=== PATIENT | male | born 1975 ===

== ENCOUNTER 2019-09-03 19:50 | Emergency (ER) | payer SELFPAY ==
[2019-09-04] MEDS ORDERED: METOCLOPRAMIDE 10 MG TAB PO ONE (00:05)
[2019-09-04] MEDS ORDERED: diphenhydrAMINE 25 MG CAP PO ONE (00:05)
--- NOTE | 2019-09-04 00:40 | Cat Scan Report ---
CT HEAD WITHOUT CONTRAST INDICATION: Pt complains of a headache x 1 day. No trauma or previous issues TECHNIQUE: Axial slices were obtained through the head. Coronal and sagittal reformatted images were obtained. COMPARISON: None available. FINDINGS: There is no intracranial hemorrhage or extra-axial fluid collection. Ventricles, basilar cisterns, an d sulci appear within normal limits for age. There is no mass lesion or midline shift. No acute alexia torial infarct is identified. Bone windows demonstrate no acute osseous abnormality. Paranasal sinuses and mastoid air cells appear clear. TECHNIQUE: All CT scans at this facility use dose modulation, iterative reconstruction, automated ex posure control, weight based dosing, when appropriate, to reduce radiation dose to as low as reasonab ly achievable. IMPRESSION: 1. No acute intracranial abnormality. Signer Name: Chnio Shea MD Signed: 09/04/2019 12:35 AM Workstation Name: [id number]
[2019-09-04 01:06] LABS: Basophils # (Auto) 0.1 K/mm3 (0.0-0.1); Basophils % (Auto) 0.8 % (0.0-1.8); Eosinophils # (Auto) 0.3 K/mm3 (0.0-0.4); Eosinophils % (Auto) 3.6 % (0.0-4.3); Hematocrit 46.1 % (35.5-45.6); Lymphocytes # (Auto) 3.4 K/mm3 (1.2-5.4); Lymphocytes % (Auto) 47.4 % (13.4-35.0); Mean Corpuscular HGB Conc 33 % (32-34); Mean Corpuscular Volume 80 fl (84-94); Monocytes # (Auto) 0.6 K/mm3 (0.0-0.8); Monocytes % (Auto) 8.4 % (0.0-7.3); Platelet Count 337 K/mm3 (140-440); Red Blood Count 5.74 M/mm3 (3.65-5.03); Red Cell Distribution Width 14.1 % (13.2-15.2)
[2019-09-04 01:25] LABS: Alanine Aminotransferase 30 units/L (7-56); Albumin 4.5 g/dL (3.9-5); BUN/Creatinine Ratio 23; Blood Urea Nitrogen 16 mg/dL (9-20); Calcium 9.7 mg/dL (8.4-10.2); Hemolysis Index 12
[2019-09-04 01:29] LABS: Bilirubin,Urine NEG (Negative); Blood,Urine SM (Negative); Color,Urine Straw (Yellow); Protein,Urine <15 mg/dL mg/dL (Negative); Urobilinogen,Urine < 2.0 mg/dL (<2.0)
[2019-09-04] MEDS ORDERED: SODIUM CHLORIDE 0.9% 1000 ML 1,000 ML IV ONE (01:35)
--- NOTE | 2019-09-04 01:37 | Emergency Department Report ---
ED General Adult HPI - General Chief complaint: Headache Stated complaint: BODY PAIN, PAIN IN FEET, AND HEADACHE Time Seen by Provider: 09/03/19 22:56 Source: patient, mergers and acquisitions banker Mode of arrival: Ambulatory Limitations: Language Barrier - History of Present Illness Initial comments: Language line used for [place] interpretation Patient is a 43-year-old male presents emergency room with complaints of generalized body aches and headache that began 2 months ago. He states that he has a frontal headache. He states that occasionally his vision feels blurry. He states that all of these symptoms have been ongoing for 2 months and he has not seen anyone for it. He denies any fever, nausea, vomiting, diarrhea, cough, shortness of breath, numbness, unilateral weakness. He denies any past medical history or allergies to medications. He endorses alcohol use, denies smoking, denies drug use. - Related Data Previous Rx's Medication Instructions Recorded Last Taken Type Butalb/Acetaminophen/Caffeine 1 cap PO Q8HR PRN #12 cap 09/04/19 Unknown Rx [Fioricet 50-300-40 mg CAP] Allergies Allergy/AdvReac Type Severity Reaction Status Date / Time No Known Allergies Allergy Verified 09/03/19 21:06 ED Review of Systems ROS: Stated complaint: BODY PAIN, PAIN IN FEET, AND HEADACHE Other details as noted in HPI Comment: All other systems reviewed and negative ED Past Medical Hx - Past Medical History Previous Medical History?: No - Surgical History Past Surgical History?: No - Social History Smoking Status: Never Smoker Substance Use Type: Alcohol - Medications Home Medications: Home Medications Medication Instructions Recorded Confirmed Last Taken Type Butalb/Acetaminophen/Caffeine 1 cap PO Q8HR PRN #12 cap 09/04/19 Unknown Rx [Fioricet 50-300-40 mg CAP] ED Physical Exam - General Limitations: Language Barrier General appearance: alert, in no apparent distress - Head Head exam: Present: atraumatic, normocephalic - Eye Eye exam: Present: PERRL, EOMI. Absent: periorbital swelling, periorbital tenderness - ENT ENT exam: Present: mucous membranes moist - Neck Neck exam: Present: full ROM. Absent: meningismus - Respiratory Respiratory exam: Present: normal lung sounds bilaterally. Absent: respiratory distress, wheezes, rales, rhonchi, stridor, chest wall tenderness, accessory muscle use, decreased breath sounds, prolonged expiratory - Cardiovascular Cardiovascular Exam: Present: regular rate, normal rhythm, normal heart sounds. Absent: systolic murmur, diastolic murmur, rubs, gallop - Neurological Exam Neurological exam: Present: alert, oriented X3, CN II-XII intact, normal gait, other (normal finger to nose, normal heel to cazares, 5/5 muscle strength in the BUE/BLE, no focal neuro deficit). Absent: motor sensory deficit - Psychiatric Psychiatric exam: Present: normal affect, normal mood - Skin Skin exam: Present: warm, dry, intact ED Course Vital Signs 09/04/19 01:40 Temperature 97.8 F Pulse Rate 54 L Respiratory 14 Rate Blood Pressure 138/88 [Left] O2 Sat by Pulse 99 Oximetry ED Medical Decision Making - Lab Data Result diagrams: 09/04/19 00:28 09/04/19 00:28 Lab Results 09/04/19 09/04/19 09/04/19 Range/Units 00:28 00:28 01:20 WBC 7.2 (4.5-11.0) K/mm3 RBC 5.74 H (3.65-5.03) M/mm3 Hgb 15.0 (11.8-15.2) gm/dl Hct 46.1 H (35.5-45.6) % MCV 80 L (84-94) fl MCH 26 L (28-32) pg MCHC 33 (32-34) % RDW 14.1 (13.2-15.2) % Plt Count 337 (140-440) K/mm3 Lymph % (Auto) 47.4 H (13.4-35.0) % [place] % (Auto) 8.4 H (0.0-7.3) % Eos % (Auto) 3.6 (0.0-4.3) % Baso % (Auto) 0.8 (0.0-1.8) % Lymph # 3.4 (1.2-5.4) K/mm3 [place] # 0.6 (0.0-0.8) K/mm3 Eos # 0.3 (0.0-0.4) K/mm3 Baso # 0.1 (0.0-0.1) K/mm3 Seg Neutrophils % 39.8 L (40.0-70.0) % Seg Neutrophils # 2.9 (1.8-7.7) K/mm3 Sodium 139 (137-145) mmol/L Potassium 4.3 (3.6-5.0) mmol/L Chloride 99.5 (98-107) mmol/L Carbon Dioxide 26 (22-30) mmol/L Anion Gap 18 mmol/L BUN 16 (9-20) mg/dL Creatinine 0.7 L (0.8-1.5) mg/dL Estimated GFR > 60 ml/min BUN/Creatinine Ratio 23 % Glucose 86 (75-100) mg/dL Calcium 9.7 (8.4-10.2) mg/dL Total Bilirubin 0.30 (0.1-1.2) mg/dL AST 34 (5-40) units/L ALT 30 (7-56) units/L Alkaline Phosphatase 73 (35-129) units/L Total Creatine Kinase 579 H (55-170) units/L Total Protein 7.5 (6.3-8.2) g/dL Albumin 4.5 (3.9-5) g/dL Albumin/Globulin Ratio 1.5 % Urine Color Straw (Yellow) Urine Turbidity Clear (Clear) Urine pH 6.0 (5.0-7.0) Ur Specific [place] 1.011 (1.003-1.030) Urine Protein <15 mg/dl (Negative) mg/dL Urine Glucose (UA) Neg (Negative) mg/dL Urine Ketones Neg (Negative) mg/dL Urine Blood Sm (Negative) Urine Nitrite Neg (Negative) Urine Bilirubin Neg (Negative) Urine Urobilinogen < 2.0 (<2.0) mg/dL Ur Leukocyte Esterase Neg (Negative) Urine WBC (Auto) < 1.0 (0.0-6.0) /HPF Urine RBC (Auto) 2.0 (0.0-6.0) /HPF - Radiology Data Radiology results: report reviewed Ordering Physician: BOB TRACY Date of Service: 09/04/19 Procedure(s): CT head/brain wo con Accession Number(s): [id number] cc: BOB TRACY CT HEAD WITHOUT CONTRAST INDICATION: Pt complains of a headache x 1 day. No trauma or previous issues TECHNIQUE: Axial slices were obtained through the head. Coronal and sagittal reformatted images were obtained. COMPARISON: None available. FINDINGS: There is no intracranial hemorrhage or extra-axial fluid collection. Ventricles, basilar cisterns, and sulci appear within normal limits for age. There is no mass lesion or midline shift. No acute territorial infarct is identified. Bone windows demonstrate no acute osseous abnormality. Paranasal sinuses and mastoid air cells appear clear. TECHNIQUE: All CT scans at this facility use dose modulation, iterative reconstruction, automated exposure control, weight based dosing, when appropriate, to reduce radiation dose to as low as reasonably achievable. IMPRESSION: 1. No acute intracranial abnormality. Signer Name: Chino Shea MD Signed: 09/04/2019 12:35 AM Workstation Name: [id number] Transcribed By: SS Dictated By: Chino Shea MD Electronically Authenticated By: Chino Shea MD Signed Date/Time: 09/04/1934 DD/ TD/TT: - Medical Decision Making Language line used for [place] interpretation Patient is a 43-year-old male presents emergency room with complaints of generalized body aches and headache that began 2 months ago. He states that he has a frontal headache. He states that occasionally his vision feels blurry. H e states that all of these symptoms have been ongoing for 2 months and he has not seen anyone for it. He denies any fever, nausea, vomiting, diarrhea, cough, shortness of breath, numbness, unilateral weakness. He denies any past medical history or allergies to medications. He endorses alcohol use, denies smoking, denies drug use. Vitals are stable. No abnormality on physical examination as documented in chart. No focal neuro deficits. CT head with no acute process. Labs with mildly elevated CK of 579, otherwise stable. No protein in the urine. Blood sugar is normal. Patient given 1 L IV fluids, Reglan, Benadryl and headache completely resolved and patient was feeling better. Patient will be referred to a primary care doctor and primary special education teacher. Patient given prescription for Fioricet. Advised patient Please take medication as prescribed as needed. Increase your water intake. Please follow-up with a primary care doctor. Please follow-up with your primary special education teacher. Return to the emergency room for any new or worsening symptoms. - Differential Diagnosis Migraine, tension [place], cluster [place], dehydration, rhabdomyolysis, mass Critical care attestation.: If time is entered above; I have spent that time in minutes in the direct care of this critically ill patient, excluding procedure time. ED Disposition Clinical Impression: Generalized body aches, History of blurry vision, Elevated CK Headache Qualifiers: Headache type: unspecified Headache chronicity pattern: acute headache Intracta bility: not intractable Qualified Code(s): R51 - Headache Disposition: DC-01 TO HOME OR SELFCARE Is pt being admited?: No Does the pt Need Aspirin: No Condition: Stable Instructions: Acute Headache (ED), Musculoskeletal Pain (ED), Blurred Vision (ED) Additional Instructions: Please take medication as prescribed as needed. Increase your water intake. Please follow-up with a primary care doctor. Please follow-up with your primary special education teacher. Return to the emergency room for any new or worsening symptoms. [place] la medicacin segn lo prescrito segn sea necesario. Aumenta tu consumo de agua. Adiel un seguimiento con un mdico de atencin primaria. Aidel un seguimiento con pandya oftalmlogo. Regrese a la ronni de emergencias por cualquier sntoma nuevo o que empeore. Prescriptions: Butalb/Acetaminophen/Caffeine [Fioricet 50-300-40 mg CAP] 1 cap PO Q8HR PRN #12 cap PRN Reason: Headache Referrals: ALTAGRACIA JAY MD [Staff Physician] - 3-5 Days [facility] [Provider Group] - 3-5 Days [facility] [Provider Group] - 3-5 Days Time of Disposition: 03:58 Print Language: [place]
[2019-09-04 01:41] VITALS: BP 138/88
[2019-09-04 01:48] LABS: WBC,Urine < 1.0 /HPF (0.0-6.0)
== END 2019-09-04 04:50 | disposition home or self-care (01) ==
LOC: ED 19:50
DX: M79.18 Myalgia, other site (principal); R74.8 Abnormal levels of other serum enzymes; R51 Headache; H53.8 Other visual disturbances; H57.89 Other specified disorders of eye and adnexa
CPT/HCPCS: 36415; 70450; 80053; 81001; 82550; 85025; 99284; J7030